=== PATIENT | male | born 1995 | race Caucasian/White ===

== ENCOUNTER 2016-11-04 17:35 | Emergency (ER) | payer OTHER ==
[2016-11-04 20:49] LABS: HEMOGLOBIN 14.9 gm/dl (14.0-17.5); RED BLOOD COUNT 4.9 M/UL (4.20-5.50); WHITE BLOOD COUNT 12.5 K/UL (4.5-11.0)
[2016-11-04 21:05] LABS: BUN/CREATININE RATIO 10 (0-10)
== END 2016-11-04 23:05 | disposition home or self-care (01) ==
LOC: ER1 17:35
PROVIDERS: Family Medicine
DX: J02.9 Acute pharyngitis, unspecified (principal); B34.9 Viral infection, unspecified; F17.200 Nicotine dependence, unspecified, uncomplicated
CPT/HCPCS: 36415; 71020; 80053; 81001; 83690; 85025; 87081; 87880; 96374; 99284; J2405

== ENCOUNTER 2021-01-01 09:44 | Emergency (ER) | payer OTHER ==
[~2021-01-01 09:44] MED LIST: IBUPROFEN600 MG PO
[2021-01-01] MEDS ORDERED: IBU800 MG PO (12:37)
== END 2021-01-01 12:42 | disposition home or self-care (01) ==
LOC: ER1 09:44
DX: S90.31XA Contusion of right foot, initial encounter (principal); S60.222A Contusion of left hand, initial encounter; F17.210 Nicotine dependence, cigarettes, uncomplicated; W04.XXXA Fall while being carried or supported by other persons, initial encounter
CPT/HCPCS: 73130; 73630; 96372; 99283; J1885

== ENCOUNTER 2021-05-14 01:15 | Emergency (ER) | payer OTHER ==
[~2021-05-14 01:15] MED LIST changes: +IBU800 MG PO
[2021-05-14] MEDS ORDERED: NAPROSYN500 MG PO (02:20)
== END 2021-05-14 03:07 | disposition home or self-care (01) ==
LOC: ER1 01:15
DX: S80.01XA Contusion of right knee, initial encounter (principal); V19.9XXA Pedal cyclist (driver) (passenger) injured in unspecified traffic accident, initial encounter
CPT/HCPCS: 73564; 96372; 99283; J1885